=== PATIENT | male | born 1965 | race African-American/Black ===

== ENCOUNTER 2017-09-02 13:05 | Emergency (ER) | payer OTHER ==
[~2017-09-02] VITALS: Ht 175.3 cm; Wt 75.0 kg
[~2017-09-02 13:05] MED LIST: ALBU6.7H IH; AMLO10TA80 PO; BECL8.7A6 IH; DIPH25CA83 PO; FURO-151 PO; LISI40TA4 PO; LITH150C PO; LORA10TA7 PO; METF10002 PO; METFORMIN; RISO02 PO; STOOL SOFTENER
[2017-09-02 15:59] LABS: BASOPHILS % 0.4 % (0.0-2.0); EOSINOPHILS % 1.8 % (0.0-5.0); LYMPHOCYTES % 27.8 % (20.0-50.0); MEAN CORPUSCULAR HEMOGLOBIN 30.6 pg (28.0-32.0); MEAN CORPUSCULAR VOLUME 94.1 fL (80.0-94.0); MEAN PLATELET VOLUME 8.9 fl (7.4-10.4); MONOCYTES % 13.1 % (2.0-8.0); NEUTROPHILS % 56.9 % (40.0-76.0); PLATELET 135 x1000/uL (130-400); RED BLOOD CELL COUNT 3.93 mill/uL (4.7-6.1); RED CELL DISTRIBUTION WIDTH 15.7 % (11.6-14.6)
[2017-09-02 16:04] LABS: CHLORIDE 113 mEq/L (98-107)
[2017-09-02 16:06] LABS: INR 1.3; PROTHROMBIN TIME 13.6 sec (9.4-11.6)
[2017-09-02 16:08] LABS: CLARITY URINE CLEAR (CLEAR); COLOR URINE YELLOW (YELLOW); GLUCOSE URINE NEGATIVE (NEGATIVE); KETONES URINE NEGATIVE (NEGATIVE); LEUKOCYTE ESTERASE URINE NEGATIVE (NEGATIVE); NITRITE URINE NEGATIVE (NEGATIVE); OCCULT BLOOD URINE NEGATIVE (NEGATIVE); PROTEIN URINE TRACE (NEGATIVE); SPECIFIC GRAVITY URINE 1.018 (1.005-1.030); UROBILINOGEN URINE 0.2 E.U./dL (0.2-1.0)
[2017-09-02 16:10] LABS: CARBON DIOXIDE 27 mEq/L (21-32)
[2017-09-02 18:56] VITALS: BP 127/74
== END 2017-09-02 19:09 | disposition home or self-care (01) ==
LOC: ER 13:05
DX: R53.1 Weakness (principal); R42 Dizziness and giddiness; I10 Essential (primary) hypertension; Z79.84 Long term (current) use of oral hypoglycemic drugs
CPT/HCPCS: 36415; 80053; 81001; 85025; 85610; 99284

== ENCOUNTER 2019-02-14 18:54 | Emergency (ER) | payer MEDICAID ==
[~2019-02-14] VITALS: Ht 177.8 cm; Wt 746.0 kg
[~2019-02-14 18:54] MED LIST changes: +METF-416 PO; -METF10002 PO; -METFORMIN; -STOOL SOFTENER
[2019-02-14 18:59] VITALS: BP 135/80
== END 2019-02-14 23:20 | disposition left against medical advice (07) ==
LOC: ER 18:54
DX: Z53.21 Procedure and treatment not carried out due to patient leaving prior to being seen by health care provider (principal)